=== PATIENT | male | born 1950 | race Caucasian/White ===

== ENCOUNTER 2021-12-09 09:57 | Emergency (ER) | payer OTHER, SELFPAY ==
[2021-12-09 09:58] VITALS: BP 135/80; PULSE 64; RESP 16; TEMP 36.2; O2SAT 98; BMI 29.0
--- NOTE | 2021-12-09 10:19 | RAD_ITS ---
STUDY: X-RAY - PELVIS REASON FOR EXAM: Male, 71 years old. Injury and pain TECHNIQUE: One view of the pelvis was obtained. COMPARISON: None. FINDINGS: There is a non-specific bowel gas pattern. There are coils projecting over the pelvis suggestive of prior abdominal wall repair. There are degenerative changes of the sacroiliac joints. Normal visualized bilateral superior and inferior pubic rami. There are degenerative changes of the pubic symphysis with articular narrowing and sclerosis. Normal ischial tuberosities. There are degenerative changes of the hips characterized by joint space narrowing and subchondral sclerosis. RAD/Pelvis 1 or 2 Views IMPRESSION: Degenerative changes. Electronically Signed: Janae Peng MD at 11:07 EDT ,
--- NOTE | 2021-12-09 10:19 | RAD_ITS ---
STUDY: X-RAY - LEFT HAND REASON FOR EXAM: Pain across distal metacarpals, left hand injury. TECHNIQUE: 3 view(s) of the hand. COMPARISON: None. FINDINGS: Normal radiocarpal articulation. Normal distal radioulnar joint. There is an intraosseous cyst in the mid scaphoid. Normal carpal articulations Normal carpometacarpal articulation of the thumb. Normal second through fifth carpometacarpal joints. There is chronic healed fracture deformity of the proximal diaphysis of the fifth metacarpal. Normal metacarpophalangeal joint of the thumb. Normal interphalangeal joint of the thumb. Normal proximal and distal phalanges of the thumb. Normal metacarpophalangeal joints of the second through fifth fingers. Normal proximal and distal interphalangeal joints of the second through fifth fingers. Normal phalanges of the second through fifth fingers. The soft tissue structures are unremarkable. RAD/Hand Min 3 Views IMPRESSION: Chronic fracture deformity of the fifth metacarpal. 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 Electronically Signed: Edi Turcios MD at 10:55 EDT ,
--- NOTE | 2021-12-09 10:20 | EX.ED.DYSGE1 ---
HPI History of Present Illness Chief Complaint: Fall Informant: patient Narrative Narrative: 71-year-old male presenting to the emergency room with a chief complaint of fall. 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 He states he landed in a sitting position and struck the back of his head. He had a small hematoma to his head but no loss of conscious. That is since resolved he has had no headache nausea vomiting. He notes continued pain in the left hand particularly over the first and second metacarpal. He states that when he moves the hand feels pain up the forearm. He has no pain he also notes continued right lower buttock pain. He states that his tailbone feels off to the side. He denies any radicular symptoms. No hematuria. No bloody bowel movements. [facility] Medical History Fall Hand injury Home Medications cephalexin 500 mg capsule (Keflex) 500 mg PO 4X/DAY 10 days 08/13/16 [Rx Last Taken Unknown] gabapentin 300 mg capsule 300 mg PO TIDCM 08/13/16 [History Last Taken Unknown] mirtazapine 15 mg tablet 15 mg PO QHS 08/13/16 [History Last Taken Unknown] multivitamin (Multiple Vitamins tablet) 1 tab PO DAILY 08/13/16 [History Last Taken Unknown] trazodone 50 mg tablet 50 mg PO QHS 08/13/16 [History Last Taken Unknown] Allergy/AdvReac Type Severity Reaction Status Date / Time Sulfa (Sulfonamide Allergy Hives Verified 12/09/21 10:00 Antibiotics) Social History (Updated 12/09/21 @ 10:[address] Delfino Winston DO) current gender identity: male Smoking Status: Unknown if ever smoked substance use type: does not use ROS ROS ED Constitutional Constitutional ED: Denies chills or weight loss Eyes Eyes: Denies change in vision or diplopia ENT ENT ED: Denies ear pain, rhinorrhea or sore throat Cardiovascular Cardiovascular: Denies chest pain, orthopnea, palpitations or racing heartbeat Respiratory/Chest Respiratory/Chest: Denies cough, dyspnea or orthopnea Gastrointestinal Gastrointestinal: Denies abdominal pain, diarrhea, nausea or vomiting Genitourinary Genitourinary ED: Denies dysuria, hematuria or urinary frequency Musculoskeletal Musculoskeletal: Reports other Details: See HPI ; Denies arthralgias or myalgias Integumentary Denies abscess or rash Neurologic Neurologic: Denies headache(s) or weakness Psychiatric Psychiatric: Denies anxiety, depression, suicidal ideation or suicidal thoughts Endocrine Endocrinology: Denies polydipsia, polyphagia or polyuria Allergic/Immunologic Allergic/Immunologic ED: Denies mouth swelling, tongue swelling or urticaria EXAM Physical Exam Const Vital Signs: 12/09/21 09:58 12/09/21 10:08 Temperature 97.2 F L Temperature Source Temporal Pulse Rate 64 Respiratory Rate 16 Respiratory Effort Normal Non-Labored Respiratory Depth Normal Respiratory Pattern Normal Blood Pressure 135/80 H Blood Pressure Mean 98 Pulse Ox 98 Oxygen Delivery Method Room Air Positive well nourished and well developed General Appearance ED: well developed HEENT Reports normocephalic, head/scalp atraumatic and moist mucous membranes Eyes PERRL and EOMs intact bilaterally Neck no lymphadenopathy, supple and no JVD Resp normal respiratory effort and clear to auscultation bilaterally Cardio regular rate, regular rhythm and no murmurs GI normal to inspection, nondistended, normoactive bowel sounds and non-tender Palpation: soft Back/Spine no CVA tenderness and normal ROM Back/Spine Narrative: The patient has pain to palpation over the ischial tuberosity on the right. There is no midline lumbar pain. Extremity Extremity Narrative: Patient is tenderness to palpation over the metacarpals #1 and #2 of the right hand. There is no obvious deformity or significant swelling or ecchymosis noted. With hyperextension the patient feels pain up along the forearm. General Extremety ED: Negative for edema General Extremity: Negative for edema Neuro oriented x3 and CN's II-XII intact bilaterally Sensorium / Orientation: alert Motor Exam: strength 5/5 throughout Psych mental status grossly normal Mood & Affect: Negative for depressed or tearful Skin no rashes or lesions noted and no wounds MDM MDM MDM Narrative Medical decision making narrative: My interpretation of the hand x-rays is no acute fracture. Chronic changes noted. My interpretation of the pelvis x-ray is no acute fracture. At this point I believe the patient is safe for discharge. He has no neurologic symptoms. We will continue conservative treatment at home. Return if worsening or concerns. Radiography Diagnostic Testing: Clinical Impression(s) from Imaging Studies Hand X-Ray 12/09/21 10:19 IMPRESSION: Chronic fracture deformity of the fifth metacarpal. 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 Electronically Signed: Edi Turcios MD at 10:55 EDT , Discharge Plan Triage Chief Complaint: Fall ED Provider: Delfino Winston Dx/Rx/DC Orders Prescriptions: No Action multivitamin [Multiple Vitamins] 1 EACH tablet 1 tab PO DAILY trazodone 50 MG tablet 50 mg PO QHS gabapentin 300 MG capsule 300 mg PO TIDCM mirtazapine 15 MG tablet 15 mg PO QHS cephalexin [Keflex] 500 MG capsule 500 mg PO 4X/DAY 10 Days 0RF [facility] [facility] [Primary Care Provider] -
== END 2021-12-09 11:32 | disposition home or self-care (01) ==
PROVIDERS: Emergency Provider Emergency Medicine; Visit Provider Emergency Medicine
DX: S00.93XA Contusion of unspecified part of head, initial encounter (principal); W10.8XXA Fall (on) (from) other stairs and steps, initial encounter; M21.931 Unspecified acquired deformity of right forearm; M85.68 Other cyst of bone, other site
CPT/HCPCS: 72170; 73130; 99282